=== PATIENT | male | born 1990 | race African-American/Black ===

== ENCOUNTER 2017-02-02 08:49 | Day surgery (SDC) | payer BC ==
[~2017-02-02 08:49] MED LIST: Aloe Vera/Sodium Chloride Gel 14.1 GM Tube ONE; Lactated Ringers 1,000 ML IV SCH; Lidocaine 1% 50 ML MDV ONE; Oxymetazoline 0.05% Nasal Spray 15 ML Bottle ONE
--- NOTE | 2017-02-02 09:20 | PCM.PREANE ---
Preanesthetic Assessment - Anesthesia/Transfusion/Family Hx Anesthesia History: Prior Anesthesia Without Reaction Family History of Anesthesia Reaction: No Transfusion History: No Prior Transfusion(s) - Review of Systems General: No Symptoms Pulmonary: No Symptoms Cardiovascular: No Symptoms Gastrointestinal: No symptoms Neurological: No Symptoms Other: Reports: None - Physical Assessment NPO Status Date: 02/01/17 Height: 1.8 m Weight: 92.533 kg ASA Class: 2 Mental Status: Alert & Oriented x3 Airway Class: Mallampati = 1 Dentition: Reports: Normal Dentition ROM/Head Extension: Full Lungs: Clear to auscultation, Normal respiratory effort Cardiovascular: Regular Rate, Regular Rhythm - Allergies Allergies/Adverse Reactions: Allergies Allergy/AdvReac Type Severity Reaction Status Date / Time No Known Allergies Allergy Verified 01/26/17 10:11 - Anesthesia Plan Pre-Op Medication Ordered: None - Acknowledgements Anesthesia Type Planned: General Anesthesia Pt an Appropriate Candidate for the Planned Anesthesia: Yes Alternatives and Risks of Anesthesia Discussed w Pt/Guardian: Yes Pt/Guardian Understands and Agrees with Anesthesia Plan: Yes PreAnesthesia Questionnaire Gastrointestinal History: Reports: GERD - Past Surgical History Head Surgeries/Procedures: Reports: None HEENT Surgical History: Reports: Oral Surgery Other HEENT Surgeries/Procedures: wisdom teeth extraction - SUBSTANCE USE Smoking Status *Q: Never Smoker Recreational Drug Use History: No - HOME MEDS Home Medications: Home Meds Azelastine HCl [Azelastine] 2 spray NASBOTH BID 01/26/17 [History] Fluticasone Propionate [Flonase Allergy Relief] 1 spray NASBOTH BID 01/26/17 [ History] - CURRENT (IN HOUSE) MEDS Current Meds: Current Medications Lactated Ringer's (Ringers, Lactated) 1,000 mls @ 100 mls/hr IV ASDIRECTED HEYDI Discontinued Medications Lidocaine HCl (Xylocaine 1%) Confirm Administered Dose 50 ml .ROUTE .STK-MED ONE Stop: 02/02/17 07:40 Oxymetazoline HCl (Afrin Original 0.05% Nasal [place]) Confirm Administered Dose 15 ml .ROUTE .STK-MED ONE Stop: 02/02/17 07:41 Sodium Chloride ([place] Saline Nasal Gel) Confirm Administered Dose 14.1 gm .ROUTE .STK-MED ONE Stop: 02/02/17 07:41
--- NOTE | 2017-02-02 09:22 | PCM.HPR ---
H & P Addendum review - H & P Addendum Review Date of Original H & P: 01/29/17 Date Reviewed: 02/02/17 Time Reviewed: 09:25 Patient was examined: No Changes
[2017-02-02] MEDS ORDERED: Remifentanil 1 MG Vial ONE (11:04)
[2017-02-02] MEDS ORDERED: Propofol 200 MG/20 ML SDV IV ONE ×2 (11:19)
[2017-02-02] MEDS ORDERED: Lidocaine 2% 5 ML SDV IV ONE (11:19)
[2017-02-02] MEDS ORDERED: Midazolam 1 MG/ML 2 ML SDV IV ONE (11:19)
[2017-02-02] MEDS ORDERED: Mineral Oil/Petrolatum Ophth Oint 3.5 GM Tube EYEBOTH ONE (11:19)
[2017-02-02] MEDS ORDERED: Ondansetron 4 MG/2 ML SDV IVPUSH ONE (11:19)
[2017-02-02] MEDS ORDERED: HYDROmorphone 2 MG/ML Syringe IV ONE (11:19)
[2017-02-02] MEDS ORDERED: fentaNYL 100 MCG/2 ML SDV IVPUSH PRN (12:50)
--- NOTE | 2017-02-02 12:59 | PCM.OPNOTE ---
- General Post-Op/Procedure Note Date of Surgery/Procedure: 02/02/17 Condition: Good Free Text/Narrative:: Diagnosis: Allergic Rhinitis, Nasal obstruction, Hypertrohy of bilateral inferior turbinates Procedure: Coblation reduction of bilateral inferior turbinates [ CPT 29514 (50 ) ] Surgeon: Shawna Valenzuela MD Anesthesia: GA Anesthesiologist: Dr Watson Date of procedure: 02/02/2017 Indications:Allergic Rhinitis, Nasal obstruction, Hypertrohy of bilateral inferior turbinates Findings: Hypertrophy of bilateral inferior turbinates +++; congested nasal mucosa + Operation Details: An informed consent was obtained. A time out was performed and the patient was brought back to the operating room. Gen. anesthesia was administered with an endotracheal tube. A 0 degree rigid nasal endoscope was used to examine bilateral nasal cavities and photo documentation was obtained. The left inferior turbinate was addressed first. 1% lidocaine was injected into the inferior turbinate - 3 mls were used. The nasal cavity was packed with 0.05% oxymetazoline soaked pledget. After adequte period of decongestion the pledget was removed. A reflex 45 coblation wand with tip dipped in AYR Gel was used at setting of 6 :2 for Coblation and coagulation respectively. The point of entry was coagulated and wand was inserted till the third marking. Three roa were created in the single channel. The inferior turbinate was visibly shrunk. Similar procedure was repeated on the right side - 3ml of lidocaine was used; there was visible reduction in size of turbinate subsequent to coblation. Bilateral nasal cavities were then packed with oxymetazoline 0.05% soaked cottonoid pledgets these were removed, hemostasis was ensured and Bacitracin oint was applied. This concluded the procedure and the patient was handed over to anesthesia for recovery. Specimens: none IV fluids: 300 ml Blood loss: 5 ml Blood products: nil Disposition: PACU for recovery Follow up: In 1 week
--- NOTE | 2017-02-02 15:51 | PCM48HPAN ---
Post Anesthesia Note - EVALUATION WITHIN 48HRS OF ANESTHETIC Vital Signs in Normal Range: Yes Patient Participated in Evaluation: Yes Respiratory Function Stable: Yes Airway Patent: Yes Cardiovascular Function Stable: Yes Hydration Status Stable: Yes Pain Control Satisfactory: Yes Nausea and Vomiting Control Satisfactory: Yes Mental Status Recovered: Yes
--- NOTE | 2017-02-02 15:51 | PCM.POSTAN ---
POST ANESTHESIA ASSESSMENT - MENTAL STATUS Mental Status: alert, oriented - RESPIRATORY Respiratory Status: respiratory rate WNL, airway patent, O2 saturation stable - CARDIOVASCULAR CV Status: pulse rate WNL, blood pressure stable - GASTROINTESTINAL GI Status: no symptoms - POST OP HYDRATION Hydration Status: adequate & stable
[2017-02-02 17:00] VITALS: BP 109/70
== END 2017-02-02 15:55 | disposition home or self-care (01) ==
LOC: MW.SDS 08:49
PROVIDERS: ATTEND Otolaryngology
PROC: 095L3ZZ Destruction of Nasal Turbinate, Percutaneous Approach (ICD-10-PCS; principal; 2017-02-02)
DX: J34.3 Hypertrophy of nasal turbinates (principal); J30.9 Allergic rhinitis, unspecified; J34.89 Other specified disorders of nose and nasal sinuses; Z98.890 Other specified postprocedural states; Z79.899 Other long term (current) drug therapy
CPT/HCPCS: 30802; A9270; J7120; 00160; J1170; J2250; J2405; J2704